=== PATIENT | male | born 1970 | race Two or more races ===

== ENCOUNTER 2025-06-10 20:02 | Emergency (ER) | payer OTHER ==
[~2025-06-10] VITALS: Ht 185.4 cm; Wt 100.0 kg
--- NOTE | 2025-06-10 21:05 | ED.PDOC ---
Musculoskeletal HPI Comments 55 year old male presents to the ED for the c/c left ankle pain. Pt states that was playing basketball and he rolled his ankle. The left ankle is notably deformed and was splinted by EMS. Pt denies any medical hx or recent surgeries. No other associated symptoms, modifiers, recent injuries or sick contacts present at this time. Chief Complaint: Lower Extremity Time Seen by MD: 21:00 Reviewed Notes: Nurses Notes, Director Of Pediatric Rehabilitation Notes, Medications, Allergies Allergies: Coded Allergies: No Known Drug Allergy (Verified Allergy, Unknown, 06/10/25) Information Source: Patient Mode of Arrival: Wheelchair Location: Left Extremity Location: Ankle Timing: Hours Prehospital treatment: None Severity: Moderate Able to Move Extremity: No Bear Weight: No Pain: Moderate Hand Dominance: Right Mechanism: Spontaneous Circumstances: Sporting Onset of Symptoms: After Trauma Symptoms: Swelling, Pain DVT Risk Factors: NONE Last Tetanus: Unknown Associated signs and symptoms: Leg pain Past Medical History PAST MEDICAL HISTORY: Denies Surgical History: Denies all surgeries Family History Family History: Unknown Social History Smoker: Non-Smoker Alcohol: Denies ETOH Use Drugs: Denies Drug Use Lives In: Home All Other Systems: Reviewed and Negative (Comprehensive systems review obtained and negative except for what is stated in the HPI.) Physical Exam General Appearance: No Apparent Distress HEENT: Other (Pupils and face symmetric. Moist mucous membranes.) Neck: Full Range of Motion, Normal Inspection Respiratory: No Accessory Muscle Use, No Respiratory Distress Cardiovascular: No Edema, No JVD, Regular Rate/Rhythm Breast Exam: Deferred Gastrointestinal: Non Tender, Soft Genitalia: Deferred Pelvic: Deferred Rectal: Deferred Extremities: No pedal edema, Swelling, Tender, Other (Left ankle deformity with medial and lateral malleolar area tenderness and bruising with mild soft tissue swelling.) Neurologic: Alert (Oriented x4), Normal Affect, Normal Mood, Other (No gross focal deficit) Cerebellar Function: NOT DONE Reflexes: NOT DONE Skin: Dry, Normal Color, Warm Peripheral Pulses: 2+ dorsalis pedis (L) Lymphatic: NOT DONE Was a procedure done? Was a procedure done?: Yes Sedation Sedation?: No Other Procedure Procedure Splinting of the left lower extremity Indication Left ankle bimalleolar fracture Informed consent obtained: Yes Risks, benefits, and alternati: Yes Notes A short-leg posterior molded splint was applied to the left lower extremity. The left lower extremity was neurovascularly intact after splinting. Differential Diagnosis EXT Differential Diagnosis: Fracture, Sprain, Dislocation, Contusion, Strain, Neurovascular injury X-Ray, Labs, Meds, VS Vital Signs Date Time Temp Pulse Resp B/P (MAP) Pulse Ox O2 Delivery O2 Flow Rate FiO2 06/11/25 00:09 98.5 88 11 112/70 (84) 95 98.5 06/10/25 23:55 89 14 128/74 06/10/25 22:15 89 14 98 Room Air* 0 21 06/10/25 22:15 98.7 89 14 128/74 (92) 98 98.7 06/10/25 21:00 98.0 98 18 118/79 (92) 99 98.0 06/10/25 20:07 98.0 98 18 118/79 99 98.0 Current Medications Medications (Trade) Dose Ordered Sig/Marlen Route Start Time Stop Time Status Last Admin Acetaminophen/ Hydrocodone Bitart (Cabool 10/325MG Tab) 1 tab ONCE ONCE PO 06/10/25 20:45 06/10/25 20:46 DC 06/10/25 21:49 Morphine Sulfate 4 mg ONCE ONCE IV 06/10/25 23:45 06/10/25 23:46 DC 06/10/25 23:55 Ondansetron HCl (Zofran) 4 mg ONCE ONCE IV 06/10/25 23:45 06/10/25 23:46 DC 06/10/25 23:54 PROCEDURE(s): LANKL - L ANKLE 3 VIEW REASON: trauma ORDER NUMBER(s): [id number], ACCESSION NUMBER(s): [id number] EXAM: XY L ANKLE 3 VIEW CLINICAL HISTORY: trauma COMPARISON: None TECHNIQUE: XY L ANKLE 3 VIEW Findings/Impression: 3 views of the left ankle. Moderately displaced fractures of the medial malleolus and distal fibula with disruption of the tibiotalar joint. Nryg-[id number]-dcllscpj soft tissue edema. There is no evidence of blastic or lytic lesions. No radiopaque foreign bodies. X-Ray, Labs, Meds, VS Comment 55-year-old male with no significant past medical history brought in by EMS for evaluation of left ankle pain and deformity status post rolling his ankle while playing basketball Vitals unremarkable Exam remarkable for left ankle deformity, tenderness and bruising with soft tissue swelling Rhythm strip independently interpreted by me: Sinus rhythm, rate 92, no ectopy. Left ankle x-rays: Findings/Impression: 3 views of the left ankle. Moderately displaced fractures of the medial malleolus and distal fibula with disruption of the tibiotalar joint. [id number] soft tissue edema. There is no evidence of blastic or lytic lesions. No radiopaque foreign bodies. Patient treated with the following in the ED: Cabool 10/325 mg p.o., morphine 4 mg IV, Zofran 4 mg IV A short-leg posterior molded splint was applied to the left lower extremity. The left lower extremity was neurovascularly intact after splinting. On re-evaluation, patient stated pain had improved. Vitals were stable. Case discussed with Dr. Curran at [facility], who will arrange for the patient to be transferred to [place] for orthopedic evaluation. Authorization [id number]. Time of 1ST Reevaluation: 21:32 Reevaluation 1ST: Unchanged Patient Education/Counseling: Diagnosis, Treatment, Need For Follow Up Family Education/Counseling: No Family Present Departure 1 Departure Time of Disposition: 00:00 Impression: Primary Impression: Left malleolar fracture Additional Impression: Dislocation of ankle, left, closed Disposition: 02 SHORT TERM HOSPITAL Admit to: Med Surg Condition: Fair Critical Care Note Critical Care Time?: No Stability Stability form required: No Heart Score Heart Score: Heart Score Response (Comments) Value History N/A 0 EKG N/A 0 Age N/A 0 Risk Factors N/A 0 Troponin N/A 0 Total 0 I personally scribed for JUAN JIMÉNEZ MD ([email or web address]) on 06/10/25 at 21:05. Electronically submitted by Ben Xiong ([email or web address]). I personally scribed for JUAN JIMÉNEZ MD ([email or web address]) on 06/11/25 at 00:35. Electronically submitted by Ben Xiong ([email or web address]). JUAN JIMÉNEZ MD Jun 10, 2025 21:05
--- NOTE | 2025-06-10 21:27 | DVH ---
EXAM: XY L ANKLE 3 VIEW CLINICAL HISTORY: trauma COMPARISON: None TECHNIQUE: XY L ANKLE 3 VIEW Findings/Impression: 3 views of the left ankle. Moderately displaced fractures of the medial malleolus and distal fibula with disruption of the tibio talar joint. Dzoq-ti-vbjykbza soft tissue edema. There is no evidence of blastic or lytic lesions. No radiopaque foreign bodies.
[2025-06-10] MEDS: HYDROcodone-ACET 10/325MG TAB PO ONE (21:49)
[2025-06-10 22:15] VITALS: PULSE 89; RESP 14; O2SAT 98
[2025-06-10] MEDS: ONDANSETRON HCL 4 MG/2 ML VIAL IV ONE (23:54)
[2025-06-10] MEDS: MORPHINE SULFATE 4 MG/ML SYR/VIAL IV ONE (23:55)
[2025-06-11 00:09] VITALS: BP 112/70; PULSE 88; RESP 11; TEMP 98.5; O2SAT 95
== END 2025-06-10 23:30 | disposition short-term general hospital (02) ==
LOC: EDBD 20:02 → ER 20:02
DX: S82.52XA Displaced fracture of medial malleolus of left tibia, initial encounter for closed fracture (principal); S93.05XA Dislocation of left ankle joint, initial encounter; X50.1XXA Overexertion from prolonged static or awkward postures, initial encounter; Y92.89 Other specified places as the place of occurrence of the external cause; Y99.8 Other external cause status; Y93.67 Activity, basketball
CPT/HCPCS: 29515; 73610; 96374; 96375; 99285; J2270; J2405